=== PATIENT | male | born 1990 | race Caucasian/White ===

== ENCOUNTER 2017-07-04 21:02 | Emergency (ER) | payer BC ==
[2017-07-04] MEDS ORDERED: Glucagon,Human Recombinant 1 MG Vial IVPUSH ONE (21:04)
--- NOTE | 2017-07-04 21:16 | EDM.PDOC ---
ED HPI GENERAL MEDICAL PROBLEM - General Chief Complaint: ENT Problem Stated Complaint: FOOD STUCK THROAT Time Seen by Provider: 07/04/17 21:03 Source of Information: Reports: Patient History Limitations: Reports: No Limitations - History of Present Illness INITIAL COMMENTS - FREE TEXT/NARRATIVE: HISTORY AND PHYSICAL: History of present illness: Patient is a 27-year-old male who presents to the emergency room with a sensation of foreign body to his esophagus. States he was eating steak and asparagus around 6 PM this evening and felt that he had a piece of food stuck in his throat. Since that time he has tried to take Tums, water and other liquids and is unable to keep them down. Has had the hiccups since that time. He is able to swallow his saliva although he states he can "feel it" to the esophageal area. Reports he has had similar episodes but has had them resolve on their own. Has never had to have an EGD or any ER/clinic visits due to these symptoms. Denies any dyspnea, SOB, chest pain, fever or chills. Denies any abdominal pain , nausea, vomiting or diarrhea/constipation. Review of systems: As per history of present illness and below otherwise all systems reviewed and negative. Past medical history: As per history of present illness and as reviewed below otherwise noncontributory. Surgical history: As per history of present illness and as reviewed below otherwise noncontributory. Social history: No reported history of drug or alcohol abuse. Family history: As per history of present illness and as reviewed below otherwise noncontributory. Physical exam: General: Well developed and well nourished 27 year old Male. alert and oriented. Nontoxic appearing and in no acute distress HEENT: Atraumatic, normocephalic, pupils reactive, negative for conjunctival pallor or scleral icterus, mucous membranes moist, throat clear, neck supple, nontender, trachea midline. No drooling or trismus. No meningeal signs. Lungs: Clear to auscultation, breath sounds equal bilaterally, chest nontender. Heart: S1S2, regular rate and rhythm Abdomen: Soft, nondistended, nontender. Negative for masses or hepatosplenomegaly. Negative for costovertebral tenderness. Pelvis: Stable nontender. Genitourinary: Deferred. Rectal: Deferred. Extremities: Atraumatic, negative for cords or calf pain. Neurovascular unremarkable. Neuro: Awake, alert, oriented. Cranial nerves II through XII unremarkable. Cerebellum unremarkable. Motor and sensory unremarkable throughout. Exam nonfocal. Upon nursing staff going to give the IV glucagon the patient didn't need to use the bathroom. During this time he did have a large emesis which he felt he moved the esophageal foreign body through this route. Dr. Wheeler happened to be in the emergency room and did come to evaluate the patient. He shouldn't is able to drink fluids without any difficulty. Patient is to follow-up with primary care or general surgery as desired. Diagnostics: [] Therapeutics: IV Glucagon (HOLD) PO challenge Impression: Esophageal foreign body, resolved Plan: 1. Make sure to cut food into small peices. Crenshaw soft diet the next 24 hours. 2. If you continue to have esophageal foreign bodies, you may want to follow up with a general surgeon for further evaluation/possible scope. 3. Follow up with primary care as needed. Return to the ED as needed and as discussed. Definitive disposition and diagnosis as appropriate pending reevaluation and review of above. Onset: Today Duration: Hour(s): Location: Reports: Neck - Related Data Allergies Allergy/AdvReac Type Severity Reaction Status Date / Time No Known Allergies Allergy Verified 07/04/17 21:09 Home Meds: Home Meds . [No Known Home Meds] 07/04/17 [History] ED ROS ENT - Review of Systems Review Of Systems: ROS reveals no pertinent complaints other than HPI. ED EXAM, ENT - Physical Exam Exam: See Below (See dictation) Course - Vital Signs Last Recorded V/S: Last Vital Signs Temp 97 F 07/04/17 21:02 Pulse 82 07/04/17 21:02 Resp 18 07/04/17 21:02 BP 142/95 H 07/04/17 21:02 Pulse Ox 97 07/04/17 21:02 - Orders/Labs/Meds Meds: Medications Discontinued Medications Generic Name Dose Route Start Last Admin Trade Name Freq PRN Reason Stop Dose Admin Glucagon 1 mg 07/04/17 21:04 Glucagen IVPUSH 07/04/17 21:05 ONETIME ONE Departure - Departure Time of Disposition: 21:30 Disposition: Home, Self-Care 01 Clinical Impression: Esophageal foreign body Qualifiers: Encounter type: initial encounter Qualified Code(s): T18.108A - Unspecified foreign body in esophagus causing other injury, initial encounter - Discharge Information Forms: ED Department Discharge Additional Instructions: My general discharge The following information is given to patients seen in the emergency department who are being discharged to home. This information is to outline your options for follow-up care. We provide all patients seen in our emergency department with a follow-up referral. The need for follow-up, as well as the timing and circumstances, are variable depending upon the specifics of your emergency department visit. If you don't have a primary care physician on staff, we will provide you with a referral. We always advise you to contact your personal physician following an emergency department visit to inform them of the circumstance of the visit and for follow-up with them and/or the need for any referrals to a consulting specialist. The emergency department will also refer you to a specialist when appropriate. This referral assures that you have the opportunity for follow-up care with a specialist. All of these measure are taken in an effort to provide you with optimal care, which includes your follow-up. Under all circumstances we always encourage you to contact your private physician who remains a resource for coordinating your care. When calling for follow-up care, please make the office aware that this follow-up is from your recent emergency room visit. If for any reason you are refused follow-up, please contact the [facility] Emergency Department at and asked to speak to the emergency department charge nurse. [facility] Specialty Care - General Surgery Professional Building [address] [place] [address], [address] [place] [address] [facility] Primary Care [address] [place] [id number] 1. Make sure to cut food into small pieces. Crenshaw soft diet the next 24 hours, will help alleviate pain with the throat irritation. 2. If you continue to have esophageal foreign bodies, you may want to follow up with a general surgeon for further evaluation/possible scope. 3. Follow up with primary care as needed. Return to the ED as needed and as discussed.
--- NOTE | 2017-07-06 08:51 | CONS ---
DATE OF CONSULTATION: 07/04/2017 DATE OF : 1990 PRIMARY CARE PHYSICIAN: None PCP Consult from ER provider Alka Mishra CONCERNING QUESTION: Food blocking. HISTORY OF PRESENT ILLNESS: The patient is a 27-year-old otherwise healthy gentleman, having a hurried meal of steak per the patient and then food stuck in the throat and does not come down and go up, and even he tried to make himself vomit, failed, and seeks help in the emergency room. Denied any syncope, short of breath, or chest pain. PAST MEDICAL HISTORY: Significant for no diabetes, MA, CVA, or hypertension. PAST SURGICAL HISTORY: None. ALLERGIES: Please refer to nursing for details. MEDICATIONS: Please refer to nursing for details. FAMILY HISTORY: Noncontributory. PHYSICAL EXAMINATION: GENERAL: By the time I examined him, the patient said he just went out to the toilet and have a large vomitus with all the food coming out and now he feels fine. A very pleasant young gentleman, sitting in chair, in no acute distress. HEENT: Normocephalic, atraumatic. Sclerae anicteric. LUNGS: Clear to auscultation. HEART: Regular rate and rhythm. ABDOMEN: Soft, nondistended. No pulsating tender midline abdominal structure. No epigastric pain. IMPRESSION: Food block; however, the patient seemed to be able to unblock himself by having vomiting out and the patient will be fine, able to be discharged home, and have a followup appointment with any surgical specialists for elective esophagogastroduodenoscopy to look for dysphagia, and the patient concurs. Thanks for the consult. MATTHEW QUINONEZ /[id number]
== END 2017-07-04 21:50 | disposition home or self-care (01) ==
LOC: MW.ED 21:02
DX: T18.128A Food in esophagus causing other injury, initial encounter (principal); X58.XXXA Exposure to other specified factors, initial encounter
CPT/HCPCS: 99284

== ENCOUNTER 2017-09-02 19:59 | Emergency (ER) | payer BC ==
[2017-09-02] MEDS ORDERED: Sodium Chloride 0.9% 2.5 ML Syringe FLUSH PRN (20:25)
[2017-09-02] MEDS ORDERED: Sodium Chloride 0.9% 10 ML Syringe FLUSH PRN (20:25)
--- NOTE | 2017-09-02 20:28 | EDM.PDOC ---
ED HPI GENERAL MEDICAL PROBLEM - General Chief Complaint: Gastrointestinal Problem Stated Complaint: FOOD STUCK IN THROAT Time Seen by Provider: 09/02/17 20:26 Source of Information: Reports: Patient History Limitations: Reports: No Limitations - History of Present Illness INITIAL COMMENTS - FREE TEXT/NARRATIVE: HISTORY AND PHYSICAL: []27-year-old male presenting with steak in his throat History of Present Illness: []1 month ago patient had a food bolus stuck in his throat and as he was eating steak tonight the food was stuck in his throat Review of Systems: As per history of present illness and below otherwise all systems reviewed and negative. Past medical history: As per history of present illness and as reviewed below otherwise noncontributory. Surgical history: As per history of present illness and as reviewed below otherwise noncontributory. Social history: No reported history of drug or alcohol abuse. Family history: As per history of present illness and as reviewed below otherwise noncontributory. Physical exam: Alert and oriented male answering questions appropriately. Since is without any shortness of breath he is spitting out any fluid that he is in his not able to swallow. HEENT: Atraumatic, normocehpalic, pupils reactive, negative for conjunctival pallor or scleral icterus, mucous membranes moist, throat clear, neck supple, nontender, trachea midline. Lungs: Clear to auscultation, breath sounds equal bilaterally, chest non tender. Heart: S1S2, regular, negative for clicks, rubs, or JVD. Abdomen: Soft, nondistended, nontender. Negative for masses or hepatossplenmegaly. Negative for costovertebral tenderness. Pelvis: Stable nontender. Genitourinary: Deferred. Rectal: Deferred Extremities: Atraumatic, negative for cords or calf pain. Neurovascular unremarkable. Neuro: Awake, alert, oriented. Cranial nerves II through XII unremarkable. Cerebellum unremarkable. Motor and sensory unremarkable throughout. Exam nonfocal. After second injection of glucagon patient was able to swallow the rest of the food bolus/steak He is drinking down a 7-Up out any difficulty Diagnostics: [] Therapeutics: []Glucagon X2 Impression: []Food bolus Plan: []Home Cut smaller pieces of meat Follow-up with Dr. Collins 's you have his information already [facility] Specialty Care - General Surgery Professional Building [address] [place] [address], [address] [place] [address] Call for an appointment for reevaluation Return to the emergency room as directed Definitive disposition and diagnosis as appropriate pending reevaluation and review of above. Onset: Today, Sudden Location: Reports: Neck throat Pain Score (Numeric/FACES): 1 - Related Data Allergies Allergy/AdvReac Type Severity Reaction Status Date / Time No Known Allergies Allergy Verified 09/02/17 20:10 Home Meds: Home Meds . [No Known Home Meds] 07/04/17 [History] Past Medical History - Past Health History Medical/Surgical History: Denies Medical/Surgical History Social & Family History - Family History Family Medical History: Noncontributory - Tobacco Use Smoking Status *Q: Never Smoker - Caffeine Use Caffeine Use: Reports: Coffee - Recreational Drug Use Recreational Drug Use: No ED ROS GENERAL - Review of Systems Review Of Systems: ROS reveals no pertinent complaints other than HPI. ED EXAM, GI/ABD - Physical Exam Exam: See Below (see dictation) Course - Vital Signs Last Recorded V/S: Last Vital Signs Temp 36.4 C 09/02/17 20:06 Pulse 58 L 09/02/17 20:06 Resp 16 09/02/17 20:06 BP 148/98 H 09/02/17 20:06 Pulse Ox 97 09/02/17 20:06 - Orders/Labs/Meds Orders: Active Orders 24 hr Category Date Time Status Sodium Chloride 0.9% [Saline Flush] Med 09/02/17 20:25 Active 10 ml FLUSH ASDIRECTED PRN Sodium Chloride 0.9% [Saline Flush] Med 09/02/17 20:25 Active 2.5 ml FLUSH ASDIRECTED PRN Saline Lock Insert [OM.PC] Stat Oth 09/02/17 20:25 Ordered Medication Orders Sodium Chloride (Saline Flush) 10 ml FLUSH ASDIRECTED PRN PRN Reason: Keep Vein Open Last Admin: 09/02/17 20:54 Dose: 10 ml Sodium Chloride (Saline Flush) 2.5 ml FLUSH ASDIRECTED PRN PRN Reason: Keep Vein Open Last Admin: 09/02/17 20:54 Dose: 2.5 ml Meds: Medications Generic Name Dose Route Start Last Admin Trade Name Luda PRN Reason Stop Dose Admin Sodium Chloride 10 ml 09/02/17 20:25 09/02/17 20:54 Saline Flush FLUSH 10 ml ASDIRECTED PRN Administration Keep Vein Open Sodium Chloride 2.5 ml 09/02/17 20:25 09/02/17 20:54 Saline Flush FLUSH 2.5 ml ASDIRECTED PRN Administration Keep Vein Open Discontinued Medications Generic Name Dose Route Start Last Admin Trade Name Luda PRN Reason Stop Dose Admin Glucagon 1 mg 09/02/17 20:41 09/02/17 20:52 Glucagen IVPUSH 09/02/17 20:42 1 mg ONETIME ONE Administration Glucagon 1 mg 09/02/17 21:16 09/02/17 21:28 Glucagen IVPUSH 09/02/17 21:17 1 mg ONETIME ONE Administration Departure - Departure Time of Disposition: 21:41 Disposition: Home, Self-Care 01 Condition: Good Clinical Impression: Esophageal foreign body Qualifiers: Encounter type: initial encounter Qualified Code(s): T18.108A - Unspecified foreign body in esophagus causing other injury, initial encounter - Discharge Information Referrals: PCP,None [Primary Care Provider] - Forms: ED Department Discharge Additional Instructions: The following information is given to patients seen in the emergency department who are being discharged to home. This information is to outline your options for follow-up care. We provide all patients seen in our emergency department with a follow-up referral. The need for follow-up, as well as the timing and circumstances, are variable depending upon the specifics of your emergency department visit. If you don't have a primary care physician on staff, we will provide you with a referral. We always advise you to contact your personal physician following an emergency department visit to inform them of the circumstance of the visit and for follow-up with them and/or the need for any referrals to a consulting specialist. The emergency department will also refer you to a specialist when appropriate. This referral assures that you have the opportunity for followup care with a specialist. All of these measure are taken in an effort to provide you with optimal care, which includes your followup. Under all circumstances we always encourage you to contact your private physician who remains a resource for coordinating your care. When calling for followup care, please make the office aware that this follow-up is from your recent emergency room visit. If for any reason you are refused follow-up, please contact the [facility] emergency department at and asked to speak to the emergency department charge nurse. You need to follow-up with Dr. Collins as you have already seen him Please call for an appointment [facility] Specialty Care - General Surgery [address], [address] [place] [address] Return to emergency room as directed and discussed - My Orders Last 24 Hours: My Active Orders 09/02/17 20:25 Sodium Chloride 0.9% [Saline Flush] 10 ml FLUSH ASDIRECTED PRN Sodium Chloride 0.9% [Saline Flush] 2.5 ml FLUSH ASDIRECTED PRN Saline Lock Insert [OM.PC] Stat - Assessment/Plan Last 24 Hours: My Active Orders 09/02/17 20:25 Sodium Chloride 0.9% [Saline Flush] 10 ml FLUSH ASDIRECTED PRN Sodium Chloride 0.9% [Saline Flush] 2.5 ml FLUSH ASDIRECTED PRN Saline Lock Insert [OM.PC] Stat
[2017-09-02] MEDS ORDERED: Glucagon,Human Recombinant 1 MG Vial IVPUSH ONE ×2 (20:41→21:16)
== END 2017-09-02 21:54 | disposition home or self-care (01) ==
LOC: MW.ED 19:59
DX: T18.128A Food in esophagus causing other injury, initial encounter (principal)
CPT/HCPCS: 96374; 96376; 99283; J1610